=== PATIENT | female | born 1945 | race Two or more races ===

== ENCOUNTER → 2017-01-09 | Outpatient (CLI) | payer MEDICARE, OTHER ==
[2017-01-09 13:13] LABS: ANION GAP 9 MEQ/L (8-16); BLOOD UREA NITROGEN 14 MG/DL (7-18); CALCIUM LEVEL 9.1 MG/DL (8.8-10.2); CARBON DIOXIDE LEVEL 27 MEQ/L (21-32); CHLORIDE LEVEL 107 MEQ/L (98-107); CREATININE FOR GFR 0.64 MG/DL (0.55-1.02); GLOMERULAR FILTRATION RATE > 60.0 (>39); GLUCOSE, FASTING 86 MG/DL (83-110); POTASSIUM SERUM 4.3 MEQ/L (3.5-5.1); SODIUM LEVEL 143 MEQ/L (136-145)
== END ==
LOC: M SMT 10:57
PROVIDERS: ATTEND Nurse Practitioner Women's Health
DX: R31.0 Gross hematuria (principal)
CPT/HCPCS: 36415; 80048; 81001; 87086; 88108; G0463

== ENCOUNTER → 2017-01-17 | Outpatient (CLI) | payer MEDICARE, OTHER ==
[~2017-01-17] MED LIST: ISOVUE-370 76% 100ML VIAL (Q9967) As Ordered ONE
--- NOTE | 2017-01-17 14:33 | REP ---
CT of the abdomen pelvis without and with IV contrast. After IV contrast scanning is performed during the portal venous phase of enhancement and again during the delayed equilibrium phase of enhancement. Comparison 11/13/2012. There is a calcified granuloma in the lower lobe of the lung medially and a calcified granuloma in the lower lobe of the left lung laterally. The hepatic parenchyma demonstrates hepato steatosis but is otherwise unremarkable. There are surgical clips in the gallbladder fossa. The pancreas and spleen are unremarkable. 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 There is a single 3 ml nonobstructive calculus in the lower pole of the right kidney. There are no left renal calculi. There is no hydronephrosis. There are no ureteral calculi. There are phleboliths in the pelvis. There are no renal masses. There is no bladder mass. There is descending colon and sigmoid colon diverticulosis without diverticulitis. Pelvis: The uterus and adnexa are unremarkable. There is no ascites or adenopathy. The pelvic bowel loops and bladder are unremarkable. Impression: There is a nonobstructive right renal calculus. There are no ureteral calculi. There is no hydronephrosis. There are no renal or bladder masses. There are phleboliths in the pelvis. There is diverticulosis without diverticulitis. There is hepato steatosis. Cholecystectomy. 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 Signed by Kian Nicole MD 01/17/2017 02:25 P
== END ==
LOC: M RAD 09:07
PROVIDERS: ATTEND Nurse Practitioner Women's Health
DX: R31.9 Hematuria, unspecified (principal)
CPT/HCPCS: 74178; Q9967

== ENCOUNTER → 2017-02-15 | Outpatient (REF) | payer MEDICARE | LOC: M SMT 13:02 | PROVIDERS: ATTEND Specialist | DX: R31.0 Gross hematuria (principal) | CPT/HCPCS: 88108; G0463 ==